=== PATIENT | male | born 1965 | race Caucasian/White ===

== ENCOUNTER 2017-01-29 23:06 | Emergency (ER) | payer OTHER ==
[~2017-01-29] VITALS: Ht 185.4 cm; Wt 104.0 kg
[2017-01-29 23:32] VITALS: BP 129/81; PULSE 82; RESP 20; O2SAT 98
--- NOTE | 2017-01-29 23:41 | ED.REPORT ---
HPI-Syncope Date of Service January 29, 2017 ED Provider: Jose Matson MD The pt is a 51 y/o male w/ a hx of hypertension presenting to the ED after an episode of syncope onset earlier this evening. He used the restroom after eating dinner and drinking two beers, and felt "off" after walking back to the living room. The pt experienced syncope after reaching for a box that was on the counter. He remembers falling and had a pulse while down per his friend. The pt's reports that when he woke he was answering questions, alert, and not pale, though he seemed tired. He denies dizziness, black stool, constipation , chest pain, SOB, abdominal pain, nausea, or heart palpitations. The pt has not experienced similar symptoms before. The pt has had mild cold-like symptoms during the week and took 1 dose of DayQuil several days ago. He reports taking his hypertension medication this morning. Nursing Notes Stated Complaint: LOSS OF CONCIOUSNESS Chief Complaint: General Complaint Nursing Notes Reviewed: Yes Allergies: Coded Allergies: No Known Allergies (Unverified , 01/29/17) General Time Seen by Provider: 22:00 Chief Complaint Other (Syncope) Hx Obtained From: Patient Arrived By: Walk-in Onset Occurred: 1 - 4 hours ago Recent Healthcare: No recent doctor visit, No recent hospitalization Similar Sx Previous: No Past Medical History Past Medical History Hypertension Past Surgical History none reported Smoking History Unknown if Ever Smoker Social History Alcohol Use: "Social" Other Social History: Good social support, Ambulatory Status Independent Review of Systems Denies black stool Respiratory: Denies: Shortness of breath Cardiovascular: Denies: Chest pain, Palpitations GI: Denies: Abdominal pain, Constipation, Hematemesis, Nausea Skin: Reports Diaphoresis Neurologic: Reports: Syncope, Denies: Dizziness, Lightheaded Complete sys rev & neg: except as marked. Physical Exam Initial Vital Signs Vital Signs (First) Date Time Temp Pulse Resp B/P Pulse Ox O2 Delivery O2 Flow Rate FiO2 01/29/17 23:32 36.6 82 20 129/81 98 Room Air Initial VS: Reviewed General/Constitutional: Awake, Alert Respiratory / Chest: Breath sounds NL, Breath sounds = bilat, No respiratory distress, No rales, No rhonchi, No wheezing Cardiovascular: Heart rate NL, Regular rhythm, Heart sounds NL, No gallop, No murmurs, No rubs Lower Extremity / Pelvis / MS: Atraumatic, Full range of motion Neurologic: Oriented X3, Speech NL Head / Eyes: Atraumatic, Normocephalic Neck: Atraumatic, Full range of motion Abdomen: Soft, Non-tender, BS normoactive, No palpable mass Back: Atraumatic, Full range of motion Skin: Color NL, Warm, Dry Psychiatric: Affect NL, Mood NL Interpretation & Diagnostics Lab Results Interpretation Result Diagram: 01/30/17 0025 01/30/17 0025 Test 01/30/17 00:25 White Blood Count 5.4th/mm3 (3.8-10.1) Red Blood Count 4.91mil/mm3 (4.40-5.80) Hemoglobin 14.8g/dL (13.8-17.2) Hematocrit 43.4% (41.0-50.0) Mean Corpuscular Volume 88.4fL (81-100) Mean Corpuscular Hemoglobin 30.1pg (27.0-35.0) Mean Corpuscular Hemoglobin Concent 34.1% (32.0-37.0) Red Cell Distribution Width 12.8% (12.3-15.4) Platelet Count 206bil/L (150-400) Neutrophils (%) (Auto) 67.2% (40-74) Lymphocytes (%) (Auto) 22.0% (14-46) Monocytes (%) (Auto) 7.2% (4-12) Eosinophils (%) (Auto) 2.8% (0-5) Basophils (%) (Auto) 0.6% (0-3) Sodium Level 137mEq/L (134-144) Potassium Level 4.2mEq/L (3.5-5.2) Chloride Level 98mEq/L (97-108) Carbon Dioxide Level 20mmol/L (18-29) Blood Urea Nitrogen 19mg/dL (6-24) Creatinine 0.96mg/dL (0.76-1.27) Estimat Glomerular Filtration Rate 87mL/min (>59) Glucose Level 140mg/dL (60-99) Calcium Level 8.9mg/dL (8.5-10.1) Total Bilirubin 0.3mg/dL (0.0-1.2) Aspartate Amino Transf (AST/SGOT) 29U/L (0-50) Alanine Aminotransferase (ALT/SGPT) 26U/L (0-44) Alkaline Phosphatase 81U/L (25-150) Troponin T 0.010ug/L (0.0-0.011) Total Protein 7.4g/dL (6.4-8.4) Albumin 4.5g/dL (3.4-5.0) Hold Obrien Top Tube Received (Received) ECG Interpretation ECG Interpretation: normal sinus rhythm with a rate of 74 Time: 23:47 Interpreted by: ED physician Re-Eval/Medical Decision Re-Evaluation/Progress : Time of Eval: 01:34 Re-Evaluation/Progress Note: Pt rechecked. Informed pt of plan for discharge. Pt understands and agrees with plan for discharge. F/U instructions and RTER warnings given. All questions addressed. Counseled Regarding: Diagnosis, Lab results, Need for follow-up, When/why to return to ED Discharge & Departure Impression: Primary Impression: Syncope Syncope type: unspecified Qualified Code: R55 - Syncope and collapse Disposition: Home Discharge Condition All VS Reviewed: Yes Condition: Stable Patient Instructions: Syncope (ED) Additional Instructions: Emergency Department evaluation included immediate, examination ECG and labs. No cause for episode of fainting was identified tonight. Please follow-up with your primary care provider for further evaluation of this. If experiencing recurrent symptoms return to emergency department immediately. Thanks for dressing is with your care tonight Referrals: [facility] Scribe Attestation Portions of this note were transcribed by Stone Anderson and Beth Barclay. I, Dr. Matson personally performed the history, physical exam and medical decision- making; I reviewed and confirmed the accuracy of the information in the transcribed note. Signed by: Stone Anderson and Beth Barclay, Reggieibjarrett, 01/30/17 and 0152. copies to: [facility] Jose Matson MD January 29, 2017 23:41 Stone Anderson January 30, 2017 01:53 BETH BARCLAY January 30, 2017 02:04
[2017-01-30 00:33] LABS: BASOPHILS % (AUTO) 0.6 % (0-3); EOSINOPHILS % (AUTO) 2.8 % (0-5); MONOCYTES % (AUTO) 7.2 % (4-12); Mean Corpuscular Hemoglobin 30.1 pg (27.0-35.0); Mean Corpuscular Volume 88.4 fL (81-100); NEUTROPHILS % (AUTO) 67.2 % (40-74); Platelet Count 206 bil/L (150-400)
[2017-01-30 00:50] VITALS: BP 133/79; PULSE 76; RESP 13; O2SAT 96
[2017-01-30 01:01] LABS: TROPONIN T 0.01 ug/L (0.0-0.011)
[2017-01-30 01:50] VITALS: BP 128/78; PULSE 77; RESP 13; O2SAT 98
== END 2017-01-30 01:51 | disposition home or self-care (01) ==
LOC: SED 23:06
DX: R55 Syncope and collapse (principal); X50.0XXA Overexertion from strenuous movement or load, initial encounter; Y93.89 Activity, other specified; Y92.89 Other specified places as the place of occurrence of the external cause; Y99.8 Other external cause status; I10 Essential (primary) hypertension